=== PATIENT | male | born 1975 | race African-American/Black ===

== ENCOUNTER 2016-05-05 22:03 | Inpatient (IN) | payer OTHER ==
[2016-05-05 22:16] VITALS: BMI 23.7
--- NOTE | 2016-05-05 22:33 | HP ---
CIWA Score - CIWA Score Nausea/Vomitin Muscle Tremors: 3 Anxiety: 3 Agitation: 3 Paroxysmal Sweats: 2 Orientation: 0-Oriented Tacttile Disturbances: 2-Mild Itch/Numbness/Burn Auditory Disturbances: 2-Mild Harshness/Frighten Visual Disturbances: 2-Mild Sensitivity Headache: 2-Mild CIWA-Ar Total Score: 22 Admission ROS BHS - HPI Chief Complaint: i need help to stop drinking alcohol and cocaine Allergies/Adverse Reactions: Allergies Allergy/AdvReac Type Severity Reaction Status Date / Time Penicillins Allergy Severe Swelling Verified 05/05/16 22:09 shellfish derived Allergy Severe Difficulty Verified 05/05/16 22:09 Breathing History of Present Illness: this 41 years old male with alcohol and cocaine dependence with withdrawal symptom,last detox 4 years ago, history of asthma bipolar disorder longest period of sobriety 3 months need help to stop Exam Limitations: No Limitations - Ebola screening Have you traveled outside of the country in the last 21 days: No (N) Have you had contact with anyone from an Ebola affected area: No Have you been sick,other than usual withdrawal symptoms: No Do you have a fever: No - Review of Systems Constitutional: Loss of Appetite, Malaise, Night Sweats, Changes in sleep EENT: reports: Nose Congestion Respiratory: reports: No Symptoms reported Cardiac: reports: Palpitations GI: reports: Diarrhea, Nausea, Poor Appetite : reports: No Symptoms Reported Musculoskeletal: reports: Back Pain, Muscle Pain Integumentary: reports: Dryness Neuro: reports: Headache, Tremors Endocrine: reports: No Symptoms Reported Hematology: reports: No Symptoms Reported Psychiatric: reports: other (bipolar disorder) Patient History - Patient Medical History Hx Asthma: Yes (on albutrol inhaler) Hx Chronic Obstructive Pulmonary Disease (COPD): No Hx Cancer: No Hx Cardiac Disorders: No Hx Congestive Heart Failure: No Hx Hypertension: No Hx Hypercholesterolemia: No Hx Pacemaker: No HX Cerebrovascular Accident: No Hx Seizures: No Hx Dementia: No Hx Diabetes: No Hx Gastrointestinal Disorders: No Hx Liver Disease: No Hx Genitourinary Disorders: No Hx Sexually Transmitted Disorders: No Hx Renal Disease (ESRD): No Hx Thyroid Disease: No Hx Human Immunodeficiency Virus (HIV): No (lase 04/24 negative) Hx Hepatitis C: No Hx Depression: Yes (AND ANXIETY) Hx Suicide Attempt: Yes (overdose,put the gun to head) Hx Bipolar Disorder: Yes Hx Schizophrenia: No Other Medical History: no suicidal,no homicidal - Patient Surgical History Past Surgical History: No Hx Neurologic Surgery: No Hx Cataract Extraction: No Hx Cardiac Surgery: No Hx Lung Surgery: No Hx Breast Surgery: No Hx Breast Biopsy: No Hx Abdominal Surgery: No Hx Appendectomy: No Hx Cholecystectomy: No Hx Genitourinary Surgery: No Hx Section: No Hx Orthopedic Surgery: No Anesthesia Reaction: No - PPD History Previous Implant?: Yes Documented Results: Negative w/o proof Date: 12/18/12 PPD to be Administered?: Yes - Smoking Cessation Smoking history: Former smoker Have you smoked in the past 12 months: No Aproximately how many cigarettes per day: 0 If you are a former smoker, when did you quit?: 2012 Hx Chewing Tobacco Use: No Initiated information on smoking cessation: Yes 'Breaking Loose' booklet given: 05/05/16 - Substance & Tx. History Hx Alcohol Use: Yes Hx Substance Use: Yes Substance Use Type: Alcohol, Cocaine Hx Substance Use Treatment: Yes ([facility] 2012 not completed) - Substances Abused Alcohol Route: Oral Frequency: Daily Amount used: 5th narinder 4 40oz beer Age of first use: 14 Date of Last Use: 05/04/16 Cocaine Route: Inhalation Frequency: Daily Amount used: $200 Age of first use: 26 Date of Last Use: 05/04/16 Family Disease History - Family Disease History Family Disease History: Other: Grandparent (alcohol), Mother (HTN), Sister (HTN) Admission Physical Exam S - Vital Signs Vital Signs: Vital Signs - 24 hr 05/05/16 22:13 Temperature 95.8 F L Pulse Rate 66 Respiratory 18 Rate Blood Pressure 122/83 - Physical General Appearance: Yes: Moderate Distress, Tremorous, Irritable, Sweating, Anxious HEENTM: Yes: Nasal Congestion, Rhinorrhea Respiratory: Yes: Lungs Clear Neck: Yes: Within Normal Limits Breast: Yes: Within Normal Limits Cardiology: Yes: Within Normal Limits, Regular Rhythm, Regular Rate, S1, S2 Abdominal: Yes: Within Normal Limits, Normal Bowel Sounds, Non Tender, Flat, Soft Genitourinary: Yes: Within Normal Limits Back: Yes: Muscle Spasm Musculoskeletal: Yes: Back pain, Muscle Pain Extremities: Yes: Tremors Neurological: Yes: master machinist II-XII NML intact, Fully Oriented, Alert, Motor Strength 5/5 Integumentary: Yes: Dry Lymphatic: Yes: Within Normal Limits - Diagnostic (1) Cocaine dependence Current Visit: No Status: Active (2) Alcohol dependence with uncomplicated withdrawal Current Visit: Yes Status: Acute (3) Bipolar disorder Current Visit: Yes Status: Acute (4) Asthma Current Visit: Yes Status: Acute Cleared for Admission [facility] - Detox or Rehab [facility] Level of Care: Medically Managed Detox Regimen/Protocol: Librium S Breath Alcohol Content Breath Alcohol Content: 0 Urine Drug Screen - Results Drug Screen Negative: No Urine Drug Screen Results: THC-Marijuana, CARLOS-Cocaine
[2016-05-05] MEDS ORDERED: chlordiazePOXIDE HCL 25 MG CAPSULE PO ONE (22:39)
[2016-05-05] MEDS ORDERED: chlordiazePOXIDE HCL 25 MG CAPSULE PO PRN (22:39)
[2016-05-05] MEDS ORDERED: MAGNESIUM CITRATE 300 ML BOTTLE PO PRN (22:39)
[2016-05-05] MEDS ORDERED: LOPERAMIDE HCL 2 MG CAPSULE PO PRN (22:39)
[2016-05-05] MEDS ORDERED: MAGNESIUM HYDROX 2400MG/30ML ORAL SUSPENSION 30 ML CUP PO PRN (22:39)
[2016-05-05] MEDS ORDERED: P-EPHED 60MG/TRIPROLIDI 2.5MG TABLET PO PRN (22:39)
[2016-05-05] MEDS ORDERED: hydrOXYzine PAMOATE 50 MG CAPSULE (FP) PO PRN (22:39)
[2016-05-05] MEDS ORDERED: MAG HYDROX/AL HYDROX/SIMETH 30 ML UNIT-DOSE CUP PO PRN (22:39)
[2016-05-05] MEDS ORDERED: ACETAMINOPHEN 325 MG TABLET (FP) PO PRN (22:39)
[2016-05-05] MEDS ORDERED: guaiFENesin/D-METHORPHAN HB 10 ML UNIT-DOSE CUPS PO PRN (22:39)
[2016-05-05] MEDS ORDERED: diphenhydrAMINE HCL 50 MG CAPSULE PO PRN (22:39)
[2016-05-05] MEDS ORDERED: ALBUTEROL SO4 6.7 GM HFA INHALER IH PRN (22:45)
[2016-05-05] MEDS: chlordiazePOXIDE HCL 25 MG CAPSULE PO SCH (23:11)
[2016-05-06] MEDS: chlordiazePOXIDE HCL 25 MG CAPSULE PO SCH ×4 (05:42→22:24)
[2016-05-06 10:04] LABS: MCH 31.7 pg (25.7-33.7); MCHC 33.5 g/dl (32.0-35.9); MEAN CELL VOLUME 94.8 fl (80-96); PLATELET COUNT 153 K/MM3 (134-434); RDW 13.3 % (11.9-15.9); WHITE BLOOD COUNT 5.4 K/mm3 (4.0-10.0)
[2016-05-06] MEDS: PRENATAL VITAMINS W/ FOLIC ACID TABLET (FP) PO SCH (10:23)
[2016-05-06] MEDS: MENTHOL/PHENOL 1 EACH UD MM PRN ×2 (10:23→22:26)
--- NOTE | 2016-05-06 10:59 | CONSULT ---
[facility] Psychiatric Consult - Data Date of interview: 05/06/16 Admission source: [facility] Identifying data: Second admission to [facility] for this 41 y/o AA male seeking detox treatment on for alcoholmarijuana and cocaine dependence.Patient is single,a father of two,homeless and supported on odd jobs. Substance Abuse History: - Smoking Cessation. Smoking history: Former smoker. Have you smoked in the past 12 months: No. Aproximately how many cigarettes per day: 0. If you are a former smoker, when did you quit?: 2012. Hx Chewing Tobacco Use: No. Initiated information on smoking cessation: Yes. 'Breaking Loose' booklet given: 05/05/16. - Substance & Tx. History. Hx Alcohol Use: Yes. Hx Substance Use: Yes. Substance Use Type: Alcohol, Cocaine. Hx Substance Use Treatment: Yes ([facility] 2012 not completed). - Substances Abused. * * Alcohol. Route: Oral. Frequency: Daily. Amount used: 5th narinder 4 40oz beer. Age of first use: 14. Date of Last Use: 05/04/16. Cocaine. Route: Inhalation. Frequency: Daily. Amount used: $200. Age of first use: 26. Date of Last Use: 05/04/16. Confirmed by the patient in this interview. Medical History: Patient endorses good general health. Psychiatric History: Patient admits to a history of one psychiatric hospitalization at [facility] in the [place] (2011).Circumstances of admission : depressed mood and suicide attempt via overdose with medications + alcohol.Diagnosed with Bipolar Disorder.Mr Cadena gets his psychiatric outpatient services at the [facility] clinic (monthly visit to psychiatrist/bi-monthly sessions with therapist).Medications : lamotrigine 100 mg po bid + remeron 45 mg po hs + seroquel 100 mg @ am/200mg @ hs + clonazepam 0.5 mg/hs.Patient states that he last took his medications on 05/05/16,prior to this [facility] visit.Mild insomnia is reported. Physical/Sexual Abuse/Trauma History: Patient denies. Mental Status Exam - Mental Status Exam Alert and Oriented to: Time, Place, Person Cognitive Function: Good Patient Appearance: Well Groomed Mood: Anxious, Apprehensive, Hopeful Affect: Mood Congruent Patient Behavior: Fatigued, Appropriate, Cooperative Speech Pattern: Clear Voice Loudness: Normal Thought Process: Goal Oriented Thought Disorder: Not Present Hallucinations: Denies Suicidal Ideation: Denies Homicidal Ideation: Denies Insight/Judgement: Poor (evidenced by his continuous drug/alcohol use) Sleep: Poorly, Difficulty falling asleep Appetite: Good Muscle strength/Tone: Normal Gait/Station: Normal Psychiatric Findings - Problem List ([place] 1, 2,3) (1) Alcohol dependence with uncomplicated withdrawal Current Visit: Yes Status: Acute (2) Cocaine dependence Current Visit: Yes Status: Active (3) Marijuana dependence Current Visit: Yes Status: Acute (4) Bipolar disorder Current Visit: Yes Status: Chronic (5) Asthma Current Visit: Yes Status: Chronic - Initial Treatment Plan Initial Treatment Plan: Psychoeducation.Detoxification.Medications : remeron 30 mg po hs (reduced) + lamictal 100 mg po bid + seroquel 100 mg po am/200 mg po hs.Side effects/benefits discussed with the patient.Made aware of risk of exfoliative dermatitis (lamictal),oversedation (remeron) and metabolic syndrome, EPS (dystonias,dyskinesias,akathisia,tremors),neuroleptic malignant syndrome ( seroquel).Patient denies history of adverse effects to these medications.He agrees to he inclusion of these drugs in his current regime of treatment.Observation.
[2016-05-06 11:07] LABS: ALBUMIN 3.7 g/dl (3.4-5.0); ALK PHOS 81 U/L (45-117); ANION GAP 7 (8-16); BILIRUBIN,TOTAL 0.4 mg/dL (0.2-1.0); CALCIUM 8.8 mg/dL (8.5-10.1); CO2 31 mmol/L (21-32); CREATININE 1.3 mg/dL (0.7-1.3); GLUCOSE,RANDOM 92 mg/dL (74-106); SGOT/AST 18 U/L (15-37); SGPT/ALT 29 U/L (12-78); TOT PROT 6.9 g/dl (6.4-8.2)
[2016-05-06] MEDS ORDERED: INFLUENZA VACCINE 45 MCG/0.5 ML (MDV 16-17) IM ONE (12:00)
--- NOTE | 2016-05-06 12:14 | PN ---
[facility] CIWA - CIWA Score Nausea/Vomitin-No Nausea/No Vomiting Muscle Tremors: 4-Moderate,w/Arms Extend Anxiety: 4-Mod. Anxious/Guarded Agitation: 4-Moderately Restless Paroxysmal Sweats: 1-Minimal Palms Moist Orientation: 0-Oriented Tacttile Disturbances: 3-Moderate Itch/Numb/Burn Auditory Disturbances: 0-None Visual Disturbances: 0-None Headache: 0-None Present CIWA-Ar Total Score: 16 S Progress Note (SOAP) Subjective: ANXIETY,TREMORS,SWEATS,INTERMITTENT SLEEP. Objective: 05/06/16 12:14 Vital Signs Temperature 96.6 F L 05/06/16 09:20 Pulse Rate 81 05/06/16 09:20 Respiratory Rate 20 05/06/16 09:20 Blood Pressure 107/70 05/06/16 09:20 O2 Sat by Pulse Oximetry (%) Laboratory Last Values WBC 5.4 K/mm3 (4.0-10.0) 05/06/16 07:00 RBC 4.19 M/mm3 (4.00-5.60) 05/06/16 07:00 Hgb 13.3 GM/dL (11.7-16.9) 05/06/16 07:00 Hct 39.7 % (35.4-49) 05/06/16 07:00 MCV 94.8 fl (80-96) 05/06/16 07:00 MCHC 33.5 g/dl (32.0-35.9) 05/06/16 07:00 RDW 13.3 % (11.9-15.9) 05/06/16 07:00 Plt Count 153 K/MM3 (134-434) 05/06/16 07:00 MPV 9.0 fl (7.5-11.1) 05/06/16 07:00 Sodium 142 mmol/L (136-145) 05/06/16 07:00 Potassium 3.8 mmol/L (3.5-5.1) 05/06/16 07:00 Chloride 104 mmol/L (98-107) 05/06/16 07:00 Carbon Dioxide 31 mmol/L (21-32) 05/06/16 07:00 Anion Gap 7 (8-16) L 05/06/16 07:00 BUN 21 mg/dL (7-18) H D 05/06/16 07:00 Creatinine 1.3 mg/dL (0.7-1.3) 05/06/16 07:00 Creat Clearance w eGFR > 60 (>60) 05/06/16 07:00 Random Glucose 92 mg/dL (74-106) 05/06/16 07:00 Calcium 8.8 mg/dL (8.5-10.1) 05/06/16 07:00 Total Bilirubin 0.4 mg/dL (0.2-1.0) D 05/06/16 07:00 AST 18 U/L (15-37) 05/06/16 07:00 ALT 29 U/L (12-78) D 05/06/16 07:00 Alkaline Phosphatase 81 U/L (45-117) 05/06/16 07:00 Total Protein 6.9 g/dl (6.4-8.2) 05/06/16 07:00 Albumin 3.7 g/dl (3.4-5.0) 05/06/16 07:00 Assessment: 05/06/16 12:14 WITHDRAWAL SX Plan: CONTINUE DETOX
[2016-05-06] MEDS: lamoTRIgine 100 MG TABLET (FP) PO SCH ×2 (12:39→22:24)
[2016-05-06] MEDS: QUEtiapine FUMARATE 100 MG TABLET (FP) PO SCH (12:39)
--- NOTE | 2016-05-06 13:55 | EKG ---
Test Reason : Blood Pressure : / mmHG Vent. Rate : 076 BPM Atrial Rate : 076 BPM P-R Int : 130 ms QRS Dur : 086 ms QT Int : 376 ms P-R-T Axes : 079 -20 036 degrees QTc Int : 423 ms NORMAL SINUS RHYTHM POSSIBLE LEFT ATRIAL ENLARGEMENT BORDERLINE ECG NO PREVIOUS ECGS AVAILABLE Confirmed by BEBETO STORY, ALLEN ([id number]) on 05/06/2016 1:55:06 PM Referred By: Rogelio Miguel Confirmed By:ALLEN TATE MD
[2016-05-06 19:22] LABS: URINE APPEARANCE CLEAR; URINE BILIRUBIN NEGATIVE (NEGATIVE); URINE BLOOD NEGATIVE (NEGATIVE); URINE COLOR YELLOW; URINE GLUCOSE (UA) NEGATIVE (NEGATIVE); URINE KETONE NEGATIVE (NEGATIVE); URINE LEUK ESTERASE NEGATIVE (NEGATIVE); URINE NITRITE NEGATIVE (NEGATIVE); URINE PROTEIN NEGATIVE (NEGATIVE); URINE UROBILINOGEN NEGATIVE E.U./dl (0.2-1.0)
[2016-05-06] MEDS ORDERED: MIRTAZAPINE 15 MG TABLET (FP) ONE (21:00)
[2016-05-06] MEDS: THIAMINE HCL 100 MG TABLET (FP) PO SCH (22:24)
[2016-05-06] MEDS: QUEtiapine FUMARATE 200 MG TABLET PO SCH (22:24)
[2016-05-06] MEDS: MIRTAZAPINE 30 MG TABLET (FP) PO SCH (22:24)
[2016-05-07] MEDS: chlordiazePOXIDE HCL 25 MG CAPSULE PO SCH ×3 (05:39→17:27)
[2016-05-07] MEDS: PRENATAL VITAMINS W/ FOLIC ACID TABLET (FP) PO SCH (10:22)
[2016-05-07] MEDS: QUEtiapine FUMARATE 100 MG TABLET (FP) PO SCH (10:22)
[2016-05-07] MEDS: lamoTRIgine 100 MG TABLET (FP) PO SCH ×2 (10:22→22:29)
[2016-05-07] MEDS: MENTHOL/PHENOL 1 EACH UD MM PRN (10:25)
[2016-05-07] MEDS: IBUPROFEN 400 MG TABLET (FP) PO PRN (10:26)
--- NOTE | 2016-05-07 11:06 | PN ---
S CIWA - CIWA Score Nausea/Vomitin-No Nausea/No Vomiting Muscle Tremors: 3 Anxiety: 4-Mod. Anxious/Guarded Agitation: 3 Paroxysmal Sweats: 3 Orientation: 0-Oriented Tacttile Disturbances: 0-None Auditory Disturbances: 0-None Visual Disturbances: 0-None Headache: 0-None Present CIWA-Ar Total Score: 13 BHS Progress Note (SOAP) Subjective: Anxiety,tremors,sweating,interrupted sleep Objective: 05/07/16 11:05 Vital Signs - 8 hr 05/07/16 05/07/16 05/07/16 03:30 06:06 09:12 Temperature 96.1 F L 97.6 F Pulse Rate 75 71 Respiratory 18 18 20 Rate Blood Pressure 132/90 135/77 Laboratory Tests 05/05/16 05/06/16 05/06/16 07:00 07:00 07:00 WBC 5.4 RBC 4.19 Hgb 13.3 Hct 39.7 MCV 94.8 MCHC 33.5 RDW 13.3 Plt Count 153 MPV 9.0 Sodium 142 Potassium 3.8 Chloride 104 Carbon Dioxide 31 Anion Gap 7 L BUN 21 H D Creatinine 1.3 Creat Clearance w eGFR > 60 Random Glucose 92 Calcium 8.8 Total Bilirubin 0.4 D AST 18 ALT 29 D Alkaline Phosphatase 81 Total Protein 6.9 Albumin 3.7 Urine Color Urine Appearance Urine pH Ur Specific [place] Urine Protein Urine Glucose (UA) Urine Ketones Urine Blood Urine Nitrite Urine Bilirubin Urine Urobilinogen Ur Leukocyte Esterase RPR Titer Hepatitis C Antibody <0.1 05/06/16 05/06/16 07:00 14:00 WBC RBC Hgb Hct MCV MCHC RDW Plt Count MPV Sodium Potassium Chloride Carbon Dioxide Anion Gap BUN Creatinine Creat Clearance w eGFR Random Glucose Calcium Total Bilirubin AST ALT Alkaline Phosphatase Total Protein Albumin Urine Color Yellow Urine Appearance Clear Urine pH 5.0 Ur Specific [place] 1.032 Urine Protein Negative Urine Glucose (UA) Negative Urine Ketones Negative Urine Blood Negative Urine Nitrite Negative Urine Bilirubin Negative Urine Urobilinogen Negative Ur Leukocyte Esterase Negative RPR Titer Nonreactive Hepatitis C Antibody labs noted Assessment: 05/07/16 11:06 Withdrawal sx. Plan: Continue detox
[2016-05-07] MEDS ORDERED: MIRTAZAPINE 15 MG TABLET (FP) ONE (19:49)
[2016-05-07] MEDS: THIAMINE HCL 100 MG TABLET (FP) PO SCH (22:28)
[2016-05-07] MEDS: MIRTAZAPINE 30 MG TABLET (FP) PO SCH (22:29)
[2016-05-07] MEDS: QUEtiapine FUMARATE 200 MG TABLET PO SCH (22:29)
[2016-05-07] MEDS: chlordiazePOXIDE 5 MG CAPSULE PO SCH (22:29)
[2016-05-08] MEDS: chlordiazePOXIDE 5 MG CAPSULE PO SCH ×3 (05:50→17:20)
[2016-05-08] MEDS: MENTHOL/PHENOL 1 EACH UD MM PRN ×2 (05:51→10:40)
[2016-05-08] MEDS: QUEtiapine FUMARATE 100 MG TABLET (FP) PO SCH (10:39)
[2016-05-08] MEDS: PRENATAL VITAMINS W/ FOLIC ACID TABLET (FP) PO SCH (10:39)
[2016-05-08] MEDS: lamoTRIgine 100 MG TABLET (FP) PO SCH ×2 (10:39→22:29)
[2016-05-08] MEDS: IBUPROFEN 400 MG TABLET (FP) PO PRN (10:40)
--- NOTE | 2016-05-08 12:37 | PN ---
BHS Progress Note (SOAP) Subjective: Cold sensations, sweating. Discomfort in throat. Pt. refused to discuss symptoms / treatment any further after that. Objective: PT. OBSERVED AMBULATING ON UNIT. 05/08/16 12:33 Vital Signs Temperature 96.0 F L 05/08/16 09:36 Pulse Rate 76 05/08/16 09:36 Respiratory Rate 18 05/08/16 09:36 Blood Pressure 136/85 05/08/16 09:36 O2 Sat by Pulse Oximetry (%) Laboratory Last Values WBC 5.4 K/mm3 (4.0-10.0) 05/06/16 07:00 RBC 4.19 M/mm3 (4.00-5.60) 05/06/16 07:00 Hgb 13.3 GM/dL (11.7-16.9) 05/06/16 07:00 Hct 39.7 % (35.4-49) 05/06/16 07:00 MCV 94.8 fl (80-96) 05/06/16 07:00 MCHC 33.5 g/dl (32.0-35.9) 05/06/16 07:00 RDW 13.3 % (11.9-15.9) 05/06/16 07:00 Plt Count 153 K/MM3 (134-434) 05/06/16 07:00 MPV 9.0 fl (7.5-11.1) 05/06/16 07:00 Sodium 142 mmol/L (136-145) 05/06/16 07:00 Potassium 3.8 mmol/L (3.5-5.1) 05/06/16 07:00 Chloride 104 mmol/L (98-107) 05/06/16 07:00 Carbon Dioxide 31 mmol/L (21-32) 05/06/16 07:00 Anion Gap 7 (8-16) L 05/06/16 07:00 BUN 21 mg/dL (7-18) H D 05/06/16 07:00 Creatinine 1.3 mg/dL (0.7-1.3) 05/06/16 07:00 Creat Clearance w eGFR > 60 (>60) 05/06/16 07:00 Random Glucose 92 mg/dL (74-106) 05/06/16 07:00 Calcium 8.8 mg/dL (8.5-10.1) 05/06/16 07:00 Total Bilirubin 0.4 mg/dL (0.2-1.0) D 05/06/16 07:00 AST 18 U/L (15-37) 05/06/16 07:00 ALT 29 U/L (12-78) D 05/06/16 07:00 Alkaline Phosphatase 81 U/L (45-117) 05/06/16 07:00 Total Protein 6.9 g/dl (6.4-8.2) 05/06/16 07:00 Albumin 3.7 g/dl (3.4-5.0) 05/06/16 07:00 Urine Color Yellow 05/06/16 14:00 Urine Appearance Clear 05/06/16 14:00 Urine pH 5.0 (5.0-8.0) 05/06/16 14:00 Ur Specific [place] 1.032 (1.001-1.035) 05/06/16 14:00 Urine Protein Negative (NEGATIVE) 05/06/16 14:00 Urine Glucose (UA) Negative (NEGATIVE) 05/06/16 14:00 Urine Ketones Negative (NEGATIVE) 05/06/16 14:00 Urine Blood Negative (NEGATIVE) 05/06/16 14:00 Urine Nitrite Negative (NEGATIVE) 05/06/16 14:00 Urine Bilirubin Negative (NEGATIVE) 05/06/16 14:00 Urine Urobilinogen Negative E.U./dl (0.2-1.0) 05/06/16 14:00 Ur Leukocyte Esterase Negative (NEGATIVE) 05/06/16 14:00 RPR Titer Nonreactive (NONREACTIVE) 05/06/16 07:00 Hepatitis C Antibody <0.1 s/co ratio (0.0-0.9) 05/05/16 07:00 LABS NOTED. Assessment: WITHDRAWAL SYMPTOMS. 05/08/16 12:34 Plan: CONTINUE DETOX. ADVISED SUPPORTIVE MEASURES FOR THROAT DISCOMFORT (PRN IBUPROFEN, WARM WATER / SALT GARGLES, PRN THROAT LOZENGES). ADVISED PT. TO FOLLOW-UP WITH GRID INSPECTOR / REHAB MEDICAL PROVIDER AFTER DISCHARGE FROM DETOX FOR GENERAL MEDICAL ASSESSMENT AND FOR ABNORMAL LAB VALUES.
[2016-05-08] MEDS: LIDOCAINE VISCOUS 2% ORAL/TOP 20 ML UNIT-DOSE CUP MM PRN ×2 (17:22→22:31)
[2016-05-08] MEDS: THIAMINE HCL 100 MG TABLET (FP) PO SCH (22:29)
[2016-05-08] MEDS: QUEtiapine FUMARATE 200 MG TABLET PO SCH (22:29)
[2016-05-08] MEDS: chlordiazePOXIDE HCL 10 MG CAPSULE PO SCH (22:30)
[2016-05-08] MEDS: MIRTAZAPINE 30 MG TABLET (FP) PO SCH (22:30)
[2016-05-09] MEDS: chlordiazePOXIDE HCL 10 MG CAPSULE PO SCH ×2 (05:17→10:32)
[2016-05-09] MEDS: LIDOCAINE VISCOUS 2% ORAL/TOP 20 ML UNIT-DOSE CUP MM PRN (05:18)
--- NOTE | 2016-05-09 10:18 | DS ---
[facility] Detox Discharge Summary Admission Date: 05/05/16 Discharge Date: 05/09/16 - History Present History: Alcohol Dependence, Cannabis Dependence, Cocaine Dependence Pertinent Past History: asthma - Physical Exam Results Vital Signs: Vital Signs Temperature 96.8 F L 05/09/16 06:33 Pulse Rate 76 05/09/16 06:33 Respiratory Rate 18 05/09/16 06:33 Blood Pressure 128/74 05/09/16 06:33 O2 Sat by Pulse Oximetry (%) Pertinent Admission Physical Exam Findings: withdrawal sx. Laboratory Last Values WBC 5.4 K/mm3 (4.0-10.0) 05/06/16 07:00 RBC 4.19 M/mm3 (4.00-5.60) 05/06/16 07:00 Hgb 13.3 GM/dL (11.7-16.9) 05/06/16 07:00 Hct 39.7 % (35.4-49) 05/06/16 07:00 MCV 94.8 fl (80-96) 05/06/16 07:00 MCHC 33.5 g/dl (32.0-35.9) 05/06/16 07:00 RDW 13.3 % (11.9-15.9) 05/06/16 07:00 Plt Count 153 K/MM3 (134-434) 05/06/16 07:00 MPV 9.0 fl (7.5-11.1) 05/06/16 07:00 Sodium 142 mmol/L (136-145) 05/06/16 07:00 Potassium 3.8 mmol/L (3.5-5.1) 05/06/16 07:00 Chloride 104 mmol/L (98-107) 05/06/16 07:00 Carbon Dioxide 31 mmol/L (21-32) 05/06/16 07:00 Anion Gap 7 (8-16) L 05/06/16 07:00 BUN 21 mg/dL (7-18) H D 05/06/16 07:00 Creatinine 1.3 mg/dL (0.7-1.3) 05/06/16 07:00 Creat Clearance w eGFR > 60 (>60) 05/06/16 07:00 Random Glucose 92 mg/dL (74-106) 05/06/16 07:00 Calcium 8.8 mg/dL (8.5-10.1) 05/06/16 07:00 Total Bilirubin 0.4 mg/dL (0.2-1.0) D 05/06/16 07:00 AST 18 U/L (15-37) 05/06/16 07:00 ALT 29 U/L (12-78) D 05/06/16 07:00 Alkaline Phosphatase 81 U/L (45-117) 05/06/16 07:00 Total Protein 6.9 g/dl (6.4-8.2) 05/06/16 07:00 Albumin 3.7 g/dl (3.4-5.0) 05/06/16 07:00 Urine Color Yellow 05/06/16 14:00 Urine Appearance Clear 05/06/16 14:00 Urine pH 5.0 (5.0-8.0) 05/06/16 14:00 Ur Specific [place] 1.032 (1.001-1.035) 05/06/16 14:00 Urine Protein Negative (NEGATIVE) 05/06/16 14:00 Urine Glucose (UA) Negative (NEGATIVE) 05/06/16 14:00 Urine Ketones Negative (NEGATIVE) 05/06/16 14:00 Urine Blood Negative (NEGATIVE) 05/06/16 14:00 Urine Nitrite Negative (NEGATIVE) 05/06/16 14:00 Urine Bilirubin Negative (NEGATIVE) 05/06/16 14:00 Urine Urobilinogen Negative E.U./dl (0.2-1.0) 05/06/16 14:00 Ur Leukocyte Esterase Negative (NEGATIVE) 05/06/16 14:00 RPR Titer Nonreactive (NONREACTIVE) 05/06/16 07:00 Hepatitis C Antibody <0.1 s/co ratio (0.0-0.9) 05/05/16 07:00 labs noted - Treatment Hospital Course: Detox Protocol Followed, Detoxed Safely, Responded well, Discharged Condition Good, Rehab Referral Accepted Patient has Accepted a Rehab Referral to: [facility] - Medication Discharge Medications: Ambulatory Orders Albuterol Sulfate Inhaler - [Ventolin Hfa Inhaler -] 2 inh PO Q4H PRN 05/05/16 Lamotrigine [Lamictal -] 100 mg PO BID 05/05/16 Mirtazapine [Remeron [DO NOT STOCK]] 45 mg PO HS 05/05/16 Quetiapine Fumarate [Seroquel -] 200 mg PO HS 05/05/16 Quetiapine Fumarate [Seroquel] 100 mg PO DAILY 05/05/16 - Diagnosis (1) Cocaine dependence Current Visit: Yes Status: Active (2) Alcohol dependence with uncomplicated withdrawal Current Visit: Yes Status: Acute (3) Marijuana dependence Current Visit: Yes Status: Acute (4) Asthma Current Visit: Yes Status: Chronic (5) Bipolar disorder Current Visit: Yes Status: Chronic - AMA Did Patient Leave Against Medical Advice: No
[2016-05-09] MEDS: lamoTRIgine 100 MG TABLET (FP) PO SCH (10:32)
[2016-05-09] MEDS: QUEtiapine FUMARATE 100 MG TABLET (FP) PO SCH (10:32)
[2016-05-09] MEDS: PRENATAL VITAMINS W/ FOLIC ACID TABLET (FP) PO SCH (10:32)
[2016-05-09 10:39] VITALS: BP 125/83; PULSE 72; TEMP 96.5
== END 2016-05-09 11:15 | disposition home or self-care (01) | DRG 774 ==
LOC: YASAS 22:03 → Y3N 22:27
PROVIDERS: ADMIT Internal Medicine; ATTEND Internal Medicine
PROC: HZ2ZZZZ Detoxification Services for Substance Abuse Treatment (ICD-10-PCS; principal; 2016-05-09)
DX: F10.230 Alcohol dependence with withdrawal, uncomplicated (principal); F14.20 Cocaine dependence, uncomplicated; F12.20 Cannabis dependence, uncomplicated; F31.9 Bipolar disorder, unspecified; J45.909 Unspecified asthma, uncomplicated
CPT/HCPCS: 36415; 80053; 81003; 85027; 86593; 93005; 93010